=== PATIENT | female | born 1995 | race Hispanic/Latino ===

== ENCOUNTER 2021-02-16 09:53 | Emergency (ER) | payer SELFPAY ==
[2021-02-16] MEDS ORDERED: ONDANSETRON 4 MG (ODT) TAB ONE (12:49)
--- NOTE | 2021-02-16 15:45 | ER ---
Nurse's Notes [facility] Name: Esther Oviedo Age: 25 yrs Sex: Female : 1995 Arrival Date: 02/16/2021 Time: 10:02 Bed 12 Private MD: Diagnosis: Vomiting;Diarrhea, unspecified Presentation: 02/16 10:32 Chief complaint: Patient states: Diarrhea that began on Monday. Vomiting that began jl7 Monday. Pt also reports generalized abd pain and headaches. 10:32 Method Of Arrival: Ambulatory jl7 10:32 Coronavirus screen: diarrhea, vomiting. Ebola Screen: Patient negative for fever jl7 greater than or equal to 101.5 degrees Fahrenheit, and additional compatible Ebola Virus Disease symptoms. Initial Sepsis Screen: Does the patient meet any 2 criteria? No. Patient's initial sepsis screen is negative. Does the patient have a suspected source of infection? No. Patient's initial sepsis screen is negative. Risk Assessment: Do you want to hurt yourself or someone else? Patient reports no desire to harm self or others. Onset of symptoms was January 2021. 10:32 Acuity: HENRRY 3 jl7 Historical: - Allergies: 10:35 No Known Allergies; jl7 - Home Meds: 10:35 control [Active]; jl7 - PMHx: 10:35 None; jl7 - PSHx: 10:35 ; jl7 - Immunization history:: Adult Immunizations up to date. - Social history:: Smoking status: Patient denies any tobacco usage or history of. Screenin:10 Abuse screen: Denies threats or abuse. Nutritional screening: No deficits noted. aa5 Tuberculosis screening: No symptoms or risk factors identified. Fall Risk None identified. Assessment: 12:10 General: Appears comfortable, Behavior is calm, cooperative. Pain: Complains of pain in aa5 right upper quadrant, left upper quadrant, right lower quadrant and left lower quadrant Pain currently is 3 out of 10 on a pain scale. Quality of pain is described as aching, Pain began 2-3 days ago. Is intermittent. Neuro: Level of Consciousness is awake, alert, obeys commands, Oriented to person, place, time, situation. Cardiovascular: Heart tones S1 S2 present Rhythm is regular. Respiratory: Airway is patent Respiratory effort is even, unlabored, Respiratory pattern is regular, symmetrical. GI: Abdomen is round non-distended, Bowel sounds present X 4 quads. Abd is soft and non tender X 4 quads. Reports diarrhea, nausea, vomiting. : No signs and/or symptoms were reported regarding the genitourinary system. EENT: No signs and/or symptoms were reported regarding the EENT system. Derm: Skin is pink, warm \T\ dry. Musculoskeletal: Range of motion: intact in all extremities. 13:48 Reassessment: Patient is alert, oriented x 3, equal unlabored respirations, skin aa5 warm/dry/pink. Pt given gatorade drink for PO challenge . 14:20 Reassessment: Patient is alert, oriented x 3, equal unlabored respirations, skin aa5 warm/dry/pink. Pt has not drank any of the gatorade at this time, will come and reassess. Pt encouraged to drink fluids. . 15:14 Reassessment: Patient is alert, oriented x 3, equal unlabored respirations, skin aa5 warm/dry/pink. PO challenge completed, pt tolerated well. No vomiting reported. . 16:56 Reassessment: Patient is alert, oriented x 3, equal unlabored respirations, skin aa5 warm/dry/pink. Vital Signs: 10:32 BP 101 / 48; Pulse 89; Resp 18 S; Temp 97.3(TE); Pulse Ox 99% on R/A; Weight 60.33 kg jl7 (R); Height 4 ft. 9 in. (144.78 cm) (R); 10:32 Body Mass Index 28.78 (60.33 kg, 144.78 cm) jl7 ED Course: 10:02 Patient arrived in ED. ds1 10:32 Arm band placed on. jl7 10:34 Triage completed. jl7 12:10 Patient has correct armband on for positive identification. aa5 12:19 Alla Sierra, TAVARES is Primary Nurse. aa5 12:19 Cristian Rolle PA is PHCP. jmm 12:19 César Butler MD is Attending Physician. jmm 16:50 No provider procedures requiring assistance completed. Patient did not have IV access aa5 during this emergency room visit. Administered Medications: 12:35 Drug: Zofran (Ondansetron) 4 mg Route: PO; aa5 Outcome: 15:45 Discharge ordered by . dariana 16:50 Discharged to home ambulatory, with significant other. aa5 16:50 Condition: good 16:50 Discharge instructions given to patient, Instructed on discharge instructions, follow up and referral plans. medication usage, Demonstrated understanding of instructions, follow-up care, medications, Prescriptions given X 1. 16:56 Patient left the ED. aa5 Signatures: Cristian Rolle PA PA jmm Sanford, Demi ds1 Alla Sierra RN RN aa5 Anjel Atkins RN RN jl7 Corrections: (The following items were deleted from the chart) 10:35 10:32 Chief complaint: Patient states: Diarrhea that began on Monday. Vomiting that jl7 began Monday. jl7
--- NOTE | 2021-02-16 15:45 | EDPHYS ---
Phys[facility] Documentation [facility] Name: Esther Oviedo Age: 25 yrs Sex: Female : 1995 Arrival Date: 02/16/2021 Time: 10:02 Bed 12 Private MD: ED Physician César Butler HPI: 02/16 12:21 This 25 yrs old Female presents to ER via Ambulatory with complaints of jmm Vomiting/Diarrhea. 12:21 The patient presents to the emergency department with nausea, vomiting, diarrhea, jmm abdominal pain. Onset: The symptoms/episode began/occurred gradually, 3 day(s) ago. Possible causes: unknown, sick contacts. The symptoms are aggravated by nothing. The symptoms are alleviated by nothing. Associated signs and symptoms: Pertinent positives: abdominal pain, Pertinent negatives:. This is a 25 year old female with no chronic medical conditions that presents to the ED with complaints of vomiting, diarrhea, abdominal pain beginning this past Monday. Daughter recently developed similar symptoms. . Historical: - Allergies: 10:35 No Known Allergies; jl7 - Home Meds: 10:35 control [Active]; jl7 - PMHx: 10:35 None; jl7 - PSHx: 10:35 ; jl7 - Immunization history:: Adult Immunizations up to date. - Social history:: Smoking status: Patient denies any tobacco usage or history of. ROS: 12:21 Constitutional: Negative for fever, chills, and weight loss, Cardiovascular: Negative jmm for chest pain, palpitations, and edema, Respiratory: Negative for shortness of breath, cough, wheezing, and pleuritic chest pain. 12:21 Abdomen/GI: Positive for abdominal pain, vomiting, diarrhea. 12:21 All other systems are negative. Exam: 12:21 Constitutional: This is a well developed, well nourished patient who is awake, alert, jmm and in no acute distress. Head/Face: atraumatic. Eyes: EOMI, no conjunctival erythema appreciated ENT: Moist Mucus Membranes Neck: Trachea midline, Supple Chest/axilla: Normal chest wall appearance and motion. Cardiovascular: Regular rate and rhythm. No edema appreciated Respiratory: Normal respirations, no respiratory distress appreciated 12:21 Back: Normal ROM Skin: General appearance color normal MS/ Extremity: Moves all extremities, no obvious deformities appreciated, no edema noted to the lower extremities Neuro: Awake and alert, normal gait Psych: Behavior is normal, Mood is normal, Patient is cooperative and pleasant 12:21 Abdomen/GI: Inspection: abdomen appears normal, Bowel sounds: normal, Palpation: soft, in all quadrants. Vital Signs: 10:32 BP 101 / 48; Pulse 89; Resp 18 S; Temp 97.3(TE); Pulse Ox 99% on R/A; Weight 60.33 kg jl7 (R); Height 4 ft. 9 in. (144.78 cm) (R); 10:32 Body Mass Index 28.78 (60.33 kg, 144.78 cm) 7 MDM: 12:21 Patient medically screened. [facility] 15:40 Data reviewed: vital signs, nurses notes. Counseling: I had a detailed discussion with dariana the patient and/or guardian regarding: the historical points, exam findings, and any diagnostic results supporting the discharge/admit diagnosis, the need for outpatient follow up, to return to the emergency department if symptoms worsen or persist or if there are any questions or concerns that arise at home. ED course: Patient tolerates PO in the ED. Patient most likely has a viral illness. Given early appendicitis return precautions. Patient understood and agrees with the plan of care. . 02/16 13:42 Order name: PO challenge; Complete Time: 13:48 dariana Administered Medications: 12:35 Drug: Zofran (Ondansetron) 4 mg Route: PO; aa5 Disposition: 02/17 07:29 Co-signature as Attending Physician, César Butler MD I agree with the assessment and [facility] plan of care. Disposition: 02/16/21 15:45 Discharged to Home. Impression: Vomiting, Diarrhea, unspecified. - Condition is Stable. - Discharge Instructions: Food Choices to Help Relieve Diarrhea, Adult, Diarrhea, Adult, Nausea and Vomiting, Adult. - Prescriptions for Zofran ODT 4 mg Oral tablet,disintegrating - place 1 tablet by TRANSLINGUAL route every 4 hours; 20 tablet. - Medication Reconciliation Form, Thank You Letter, Antibiotic Education, Prescription Opioid Use form. - Follow up: Private Physician; When: 2 - 3 days; Reason: Recheck today's complaints, Continuance of care, Re-evaluation by your physician. Signatures: César Butler MD MD cha Mickail, Joel, PA PA jmm Sierra, Alla, RN RN aa5 Anjel Atkins RN RN jl7 Corrections: (The following items were deleted from the chart) 02/16 16:56 15:45 02/16/2021 15:45 Discharged to Home. Impression: Vomiting; Diarrhea, unspecified. aa5 Condition is Stable. Forms are Medication Reconciliation Form, Thank You Letter, Antibiotic Education, Prescription Opioid Use. Follow up: Private Physician; When: 2 - 3 days; Reason: Recheck today's complaints, Continuance of care, Re-evaluation by your physician. dariana
[2021-02-16 17:05] VITALS: BP 101/48; TEMP 97.3; O2SAT 99
== END 2021-02-16 16:56 | disposition home or self-care (01) ==
LOC: ER 09:53
DX: R11.2 Nausea with vomiting, unspecified (principal); R19.7 Diarrhea, unspecified
CPT/HCPCS: 99283